=== PATIENT | female | born 1975 | race Two or more races ===

== ENCOUNTER 2016-09-20 01:17 | Emergency (ER) | payer OTHER ==
[~2016-09-20] VITALS: Ht 152.4 cm; Wt 59.0 kg
[2016-09-20] MEDS ORDERED: NKM (01:29)
[2016-09-20 02:00] VITALS: BP 117/63
[2016-09-20 02:58] LABS: BASOPHILS % (AUTO) 1.1 % (0.0-2.0); EOSINOPHILS % (AUTO) 1.9 % (0.0-3.0); LYMPHOCYTES % (AUTO) 39.2 % (20.0-45.0); MEAN CORPUSCULAR HEMOGLOBIN 18.4 PG (27.0-31.0); MEAN CORPUSCULAR HGB CONC 29.7 G/DL (32.0-36.0); MEAN CORPUSCULAR VOLUME 62 FL (80-99); MEAN PLATELET VOLUME 6.9 FL (6.5-10.1); MONOCYTES % (AUTO) 9.8 % (1.0-10.0); PLATELET COUNT 328 K/UL (150-450); RED BLOOD COUNT 4.56 M/UL (4.20-5.40); RED CELL DISTRIBUTION WIDTH 16.5 % (11.6-14.8); WHITE BLOOD COUNT 8.3 K/UL (4.8-10.8)
[2016-09-20 03:00] LABS: APPEARANCE,URINE CLEAR; KETONES,URINE 1+ (NEGATIVE); LEUKOCYTE ESTERASE ,URINE 3+ (NEGATIVE); NITRITE,URINE NEGATIVE (NEGATIVE); PH,URINE 5 (4.5-8.0); PROTEIN,URINE NEGATIVE (NEGATIVE); UROBILINOGEN,URINE NORMAL MG/DL (0.0-1.0)
[2016-09-20 03:11] LABS: ALANINE AMINOTRANSFERASE 30 U/L (3-33); ANION GAP 15 (5-15); ASPARTATE AMINO TRANSFERASE 29 U/L (5-40); CALCIUM 8.9 mg/dL (8.6-10.2); CARBON DIOXIDE 22 mEQ/L (20-30); CHLORIDE 101 mEQ/L (98-107); CREATININE 0.5 mg/dL (0.5-0.9); GLOMERULAR FILTRATION RATE > 60 mL/min (>60); HEMOLYSIS 4; POTASSIUM 3.7 mEQ/L (3.4-4.9); SODIUM 138 mEQ/L (135-145); TOTAL PROTEIN 6.9 g/dL (6.6-8.7)
[2016-09-20 03:15] LABS: TROPONIN I < 0.30 ng/mL (<=0.30)
[2016-09-20 03:23] LABS: CKMB < 1.5 ng/mL (< 3.8); THYROID STIMULATING HORMONE 0.011 uIU/mL (0.300-4.500)
[2016-09-20 03:36] LABS: BACTERIA,URINE FEW /HPF; RBC,URINE 0-2 /HPF (0 - 2); SQUAMOUS EPITHELIAL CELL,UR FEW /LPF (NONE/OCC)
[2016-09-20 04:00] VITALS: BP 116/56
--- NOTE | 2016-09-20 04:31 | Emergency Room Report ---
History of Present Illness General Chief Complaint: Palpitations Source: Patient Present Illness HPI Is a 41-year-old female with history of hyperthyroidism. She was on medication but has not taken it for several years. She presents with palpitation. No fever chills but no nausea no vomiting. No diaphoresis. No syncopal episode. Onset tonight. Allergies: Coded Allergies: No Known Allergies (Unverified , 09/20/16) Patient History Past Medical History: see triage record, old chart reviewed Past Surgical History: none Pertinent Family History: none Social History: Denies: smoking Last Menstrual Period: Aug Now: No Immunizations: other Reviewed Nursing Documentation: PMH: Agreed, PSxH: Agreed Review of Systems Eye: Denies: blurred vision, eye pain ENT: Denies: ear pain, nose congestion, throat swelling Respiratory: Denies: cough, shortness of breath Cardiovascular: Reports: palpitations, Denies: chest pain Gastrointestinal: Denies: abdominal pain, diarrhea, nausea, vomiting Musculoskeletal: Denies: back pain, joint pain Skin: Denies: rash Neurological: Denies: headache, numbness Endocrine: Denies: increased thirst, increased urine Hematologic/Lymphatic: Denies: easy bruising All Other Systems: negative except mentioned in HPI Physical Exam Vital Signs Date Time Temp Pulse Resp B/P Pulse Ox O2 Delivery O2 Flow Rate FiO2 09/20/16 01:22 98.4 112 18 127/78 99 Room Air vitals showed tachycardia Sp02 EP Interpretation: reviewed, normal General Appearance: well appearing, no apparent distress, alert Head: normocephalic, atraumatic Eyes: bilateral eye EOMI, bilateral eye PERRL ENT: hearing grossly normal, normal pharynx Neck: full range of motion, supple, no meningismus Respiratory: chest non-tender, lungs clear, normal breath sounds Cardiovascular #1: regular rate, rhythm, no murmur Gastrointestinal: normal bowel sounds, non tender, no mass, no organomegaly, no bruit, non-distended Musculoskeletal: back normal, gait/station normal, normal range of motion Neurologic: alert, oriented x3 Psychiatric: mood/affect normal Skin: warm/dry Medical Decision Making Diagnostic Impression: Primary Impression: Palpitations Additional Impressions: Hyperthyroidism Anemia Qualified Codes: D64.9 - Anemia, unspecified UTI (urinary tract infection) Qualified Codes: N30.00 - Acute cystitis without hematuria ER Course Patient present with palpitation. No evidence of PE, dissection, ACS to name a few. May be secondary to infection, anxiety, stress related. Could also be from her anemia. No evidence of thyroid storm or thyroid toxicosis. Advised patient to followup with her primary care for treatment. Lab Results Impression labs unremarkable EKG Diagnostic Results Rate: normal, tachycardiac Rhythm: NSR ST Segments: no acute changes Rhythm Strip Diag. Results EP Interpretation: yes Rate: 90 Rhythm: NSR, no PVC's, no ectopy Chest X-Ray Diagnostic Results EP Interpretation: Yes Findings: no consolidation, no effusion, no pneumothorax, no acute cardiopulmonary disease Number of Views: 1 CT/MRI/US Diagnostic Results CT/MRI/US Diagnostic Results : Imaging Test Ordered: CT chest Impression negative per radiologist. Last Vital Signs Date Time Temp Pulse Resp B/P Pulse Ox O2 Delivery O2 Flow Rate FiO2 09/20/16 01:22 98.4 112 18 127/78 99 Room Air Status: improved Disposition: HOME, SELF-CARE Condition: Stable Scripts Iron,Carbonyl/Vit C/Vit B12/Fa (IRON 100 PLUS TABLET) 1 Each Tablet 1 EACH PO DAILY, #30 TAB Prov: ROSSI BANKS M.D. 09/20/16 Cephalexin* (KEFLEX*) 500 Mg Capsule 500 MG ORAL TID, #21 CAP 0 Refills Prov: ROSSI BANKS M.D. 09/20/16 Referrals: [facility],REFERRING (PCP) Patient Instructions: Palpitations Additional Instructions: Followup your DrSarabjit within a week. Return if symptom worsen. Have your doctor recheck in your thyroid test. ROSSI BANKS M.D. Sep 20, 2016 04:31
[2016-09-20] MEDS ORDERED: IRON 100 PLUS1 EACH PO (05:16)
[2016-09-20] MEDS ORDERED: KEFLEX500 MG ORAL (05:16)
[2016-09-20 05:30] VITALS: BP 116/56
--- NOTE | 2016-09-20 11:06 | Diagnostic Imaging Report ---
Indication: Chest Pain Comparison: None A single view chest radiograph was obtained. Findings: Cardiomediastinal appearance is within normal limits for age. Pulmonary vascularity is appropriate. The diaphragmatic contour is smooth and costophrenic angles are sharp. No pleural effusions are identified. The bones are unremarkable. Impression: No acute findings
--- NOTE | 2016-09-24 11:45 | Diagnostic Imaging Report ---
Indication: Chest pain Technique: Continuous helical transaxial imaging of the chest was obtained from the thoracic inlet to the upper abdomen during rapid intravenous contrast administration. Arterial phase of enhancement obtained. Coronal 2-D reformats were also obtained and maximum intensity projection images in multiple planes. Study obtained in a Siemens sensation [address] Total Dose length Product (DLP): [address] Dose Index Volume (CTDIvol): 13, 13, 25 mGy Comparison: None Findings: The pulmonary artery is well opacified and shows no filling defects. The lungs are essentially clear with only minimal posterior basilar atelectasis. There is no adenopathy, pleural or pericardial effusions are identified. The aortic dissection or aneurysm identified within the chest. Visualized part of the upper abdomen is unremarkable. Impression: Negative CTA of the chest [facility] has communicated the preliminary results to the Emergency Department. Their findings are largely concordant with this report. The CT scanner at [facility] is accredited by the [employer] and the scans are performed using protocols designed to limit radiation exposure to as low as reasonably achievable to attain images of sufficient resolution adequate for diagnostic evaluation.
--- NOTE | 2016-10-17 15:04 | Cardiology Report ---
APPROVED REPORT EKG Measurement Heart [id number] Sinus tachycardia Otherwise normal ECG
== END 2016-09-20 05:30 | disposition home or self-care (01) ==
LOC: EMR 01:46
DX: R00.2 Palpitations (principal); E05.90 Thyrotoxicosis, unspecified without thyrotoxic crisis or storm; D64.9 Anemia, unspecified; N39.0 Urinary tract infection, site not specified
CPT/HCPCS: 36415; 71010; 71275; 80053; 81003; 81025; 82550; 82553; 84439; 84443; 84484; 85025; 85379; 87086; 93005; 96361; 96374; 99284; Q9967

== ENCOUNTER 2017-03-09 21:40 | Emergency (ER) | payer SELFPAY ==
[~2017-03-09] VITALS: Ht 152.4 cm; Wt 62.6 kg
[~2017-03-09 21:40] MED LIST: IRON 100 PLUS1 EACH PO; KEFLEX500 MG ORAL; NKM
[2017-03-09 22:50] VITALS: BP 130/80
[2017-03-09 23:41] LABS: KETONES,URINE NEGATIVE (NEGATIVE); LEUKOCYTE ESTERASE ,URINE 1+ (NEGATIVE); NITRITE,URINE NEGATIVE (NEGATIVE); PH,URINE 7 (4.5-8.0); PROTEIN,URINE NEGATIVE (NEGATIVE); UROBILINOGEN,URINE NORMAL MG/DL (0.0-1.0)
[2017-03-09 23:44] LABS: APPEARANCE,URINE CLEAR
[2017-03-09 23:52] LABS: BACTERIA,URINE FEW /HPF; RBC,URINE 0-2 /HPF (0 - 2); SQUAMOUS EPITHELIAL CELL,UR FEW /LPF (NONE/OCC); WBC,URINE 0-2 /HPF (0 - 2)
[2017-03-10 00:10] VITALS: BP 128/79
[2017-03-10] MEDS ORDERED: BENTYL10 MG ORAL (01:11)
--- NOTE | 2017-03-10 01:11 | Emergency Room Report ---
History of Present Illness General Chief Complaint: Abdominal Pain Source: Patient Present Illness HPI This is a 42-year-old female who presents with chief complaint of abdominal cramping and bloating for the last 2 weeks. No nausea no vomiting. No fever or chills. Nothing made it better and nothing made it worse. Pain is 5/10. No urinary complaint. No vaginal bleeding. Allergies: Coded Allergies: No Known Allergies (Unverified , 09/20/16) Patient History Past Medical History: see triage record, old chart reviewed Past Surgical History: Pertinent Family History: none Social History: Denies: smoking Last Menstrual Period: FEBRUARY 25 Now: No Immunizations: other Reviewed Nursing Documentation: PMH: Agreed, PSxH: Agreed Review of Systems Eye: Denies: blurred vision, eye pain ENT: Denies: ear pain, nose congestion, throat swelling Respiratory: Denies: cough, shortness of breath Cardiovascular: Denies: chest pain, palpitations Gastrointestinal: Reports: abdominal pain, Denies: diarrhea, nausea, vomiting Musculoskeletal: Denies: back pain, joint pain Skin: Denies: rash Neurological: Denies: headache, numbness Endocrine: Denies: increased thirst, increased urine Hematologic/Lymphatic: Denies: easy bruising All Other Systems: negative except mentioned in HPI Physical Exam Vital Signs Date Time Temp Pulse Resp B/P Pulse Ox O2 Delivery O2 Flow Rate FiO2 03/09/17 22:32 98.2 83 18 129/82 98 Room Air vitals normal Sp02 EP Interpretation: reviewed, normal General Appearance: well appearing, no apparent distress, alert Head: normocephalic, atraumatic Eyes: bilateral eye EOMI, bilateral eye PERRL ENT: hearing grossly normal, normal pharynx Neck: full range of motion, supple, no meningismus Respiratory: chest non-tender, lungs clear, normal breath sounds Cardiovascular #1: regular rate, rhythm, no murmur Gastrointestinal: normal bowel sounds, non tender, no mass, no organomegaly, no bruit, non-distended Musculoskeletal: back normal, gait/station normal, normal range of motion Psychiatric: mood/affect normal Skin: warm/dry Medical Decision Making Diagnostic Impression: Primary Impression: Abdominal pain Qualified Codes: R10.84 - Generalized abdominal pain Additional Impression: Ovarian cyst ER Course Patient with abdominal pain and bloating. Abdomen is soft. No localizing pain. No evidence of obstruction or acute abdomen. CT is unremarkable except for small ovarian cyst. We'll discharge home. CT/MRI/US Diagnostic Results CT/MRI/US Diagnostic Results : Imaging Test Ordered: CT abdomen and pelvis Impression read by radiologist. 12 mm right ovarian cyst. Last Vital Signs Date Time Temp Pulse Resp B/P Pulse Ox O2 Delivery O2 Flow Rate FiO2 03/09/17 22:32 98.2 83 18 129/82 98 Room Air Status: improved Disposition: HOME, SELF-CARE Condition: Stable Scripts Dicyclomine Hcl* (BENTYL*) 10 Mg Capsule 10 MG ORAL FOUR TIMES A DAY, #30 CAP Prov: ROSSI BANKS M.D. 03/10/17 Referrals: [facility]/,REFERRING (PCP) Patient Instructions: Abdominal Pain, Adult Additional Instructions: Followup with your Dr. in 7 days. Return if worse. ROSSI BANKS M.D. Mar 10, 2017 01:11
[2017-03-10 01:25] VITALS: BP 125/79
--- NOTE | 2017-03-10 08:47 | Diagnostic Imaging Report ---
Indications: Lower abdominal pain Technique: Continuous helical CT imaging of the abdomen and pelvis was performed with automatic exposure control on a Siemens sensation [address] scanner. Axial, coronal, sagittal images reconstructed at 3 mm slice thickness. No oral or IV contrast was administered per requesting physician's order, despite no contraindications listed. CTDI volume(s): 15 mGy Total DLP: 798 mGy-cm Findings: Comparison: None Lack of oral and IV contrast limits evaluation. Gastrointestinal tract nondilated throughout. No obvious mural thickening, adjacent stranding, extraluminal gas or fluid collections. Increased colonic feces. Unenhanced liver, gallbladder, pancreas, spleen, adrenal glands, kidneys, ureters, urinary bladder, uterus, bilateral adnexal regions, retroperitoneum, mesentery, remainder visualized abdominopelvic anatomy demonstrates no obvious acute abnormality. Mildly increased interstitial markings and dependent portions both lung bases. Irregular pleural-based linear density at the anteromedial margin of the medial segment of the right pulmonary middle lobe. Heart enlarged. Small disc marginal osteophytes in lumbar spine. Impression: No evidence of acute abdominopelvic disease, with limitation as described. Subtle but potentially significant abnormalities may be missed. Repeat CT scan with full oral and IV contrast preparation recommended for more complete evaluation, as clinically indicated Probable mild compressive changes in both lung bases Subsegmental atelectasis versus scarring anterior right lung base Cardiomegaly Mild degenerative spondylosis This correlates with [facility] preliminary report.
== END 2017-03-10 01:25 | disposition home or self-care (01) ==
LOC: EMR 23:05
DX: R10.9 Unspecified abdominal pain (principal); N83.209 Unspecified ovarian cyst, unspecified side; I51.7 Cardiomegaly; M47.816 Spondylosis without myelopathy or radiculopathy, lumbar region
CPT/HCPCS: 74176; 81003; 81025; 99284